=== PATIENT | female | born 2000 | race African-American/Black ===

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

== ENCOUNTER 2020-12-27 06:15 | Inpatient (IN) ==
[2020-12-27] MEDS ORDERED: AMPICILLIN VIAL 2 GRAM ONE (06:39)
[2020-12-27] MEDS ORDERED: PITOCIN ONE (06:40)
[2020-12-27] MEDS ORDERED: D5 1/2 NS 1000 ML 1,000 ML IV ONE ×2 (06:40→19:01)
[2020-12-27] MEDS ORDERED: NS 100 ML IV 100 ML IV ONE ×4 (06:40→19:01)
[2020-12-27] MEDS ORDERED: BETADINE SOLN ONE (06:40)
[2020-12-27] MEDS ORDERED: D5 1/2 NS 1L W PITOCIN 20 UNITS/L 20 UNITS/1,000 ML BAG IV ONE (06:41)
[2020-12-27] MEDS ORDERED: D5LR 1L W PITOCIN 10 UNITS/L 10 UNITS/1,000 ML BAG IV ONE (06:41)
[2020-12-27] MEDS ORDERED: PHENERGAN INJ 25 MG IM PRN ×2 (06:43→23:55)
[2020-12-27] MEDS ORDERED: REGLAN INJ 10 MG VIAL IVP PRN (06:43)
[2020-12-27] MEDS ORDERED: D5LR 1L W PITOCIN 10 UNITS/L 10 UNITS/1,000 ML BAG IV PRN ×2 (06:43→06:47)
[2020-12-27] MEDS ORDERED: PITOCIN IVP ONE (06:46)
[2020-12-27] MEDS: D5 1/2 NS 1000 ML 1,000 ML IV SCH ×3 (06:50→23:58)
[2020-12-27] MEDS ORDERED: AMPICILLIN VIAL 2 GRAM 2 G in NS 100 ML IV + SPIKE MINIBAG* 100 ML IV SCH (07:00)
[2020-12-27 07:18] LABS: BILIRUBIN,URINE NEGATIVE (NEGATIVE); BLOOD/HEMOGLOBIN,URINE NEGATIVE (NEGATIVE); GLUCOSE, URINE NEGATIVE (NEGATIVE); KETONES,URINE NEGATIVE (NEGATIVE); LEUKOCYTE ESTERASE ,URINE 2+ (NEGATIVE); NITRITES,URINE NEGATIVE (NEGATIVE); PH,URINE 6.5 (5.0 - 8.0); PROTEIN,URINE NEGATIVE (NEGATIVE); UROBILINOGEN,URINE NORMAL (NORMAL)
[2020-12-27 07:27] LABS: APPEARANCE,URINE SLIGHTLY HAZY (CLEAR); BACTERIA,URINE TRACE /HPF (NEGATIVE); COLOR,URINE YELLOW (YELLOW); RBC,URINE NONE SEEN /HPF (0-3); SQUAMOUS EPITHELIAL CELL,UR MODERATE /HPF (NEGATIVE)
[2020-12-27 07:29] LABS: BASOPHILS % (AUTO) 0.5 % (0.2-1.0); EOSINOPHILS # (AUTO) 0.1 x10^3/uL (0.0-0.2); EOSINOPHILS % (AUTO) 0.9 % (0.9-2.9); HEMOGLOBIN 11.3 g/dL (12.0-16.0); LYMPHOCYTES # (AUTO) 2.5 X10^3/uL (1.3-2.9); LYMPHOCYTES % (AUTO) 27.9 % (21.0-51.0); MEAN CORPUSCULAR HEMOGLOBIN 28.5 pg (27.0-34.0); MEAN CORPUSCULAR HGB CONC 33.2 g/dL (33.0-35.0); MEAN CORPUSCULAR VOLUME 85.9 fL (80.0-100.0); MEAN PLATELET VOLUME 9.3 fL (7.4-11.0); MONOCYTES # (AUTO) 0.8 x10^3/uL (0.3-0.8); MONOCYTES % (AUTO) 8.4 % (0.0-13.0); NEUTROPHILS # (AUTO) 5.6 x10^3/uL (2.2-4.8); NEUTROPHILS % (AUTO) 62.3 % (42.0-75.0); PLATELET COUNT 376 X10^3/uL (150.0-450.0); RED BLOOD COUNT 3.96 X10^6/uL (3.5-5.4); RED CELL DISTRIBUTION WIDTH 13.3 % (11.6-16.5); WHITE BLOOD COUNT 9.1 X10^3/uL (3.6-10.0)
[2020-12-27 07:33] LABS: BLOOD UREA NITROGEN 11 mg/dL (7-18); CALCIUM 8.7 mg/dL (8.5-10.1); CARBON DIOXIDE 18.9 mmol/L (21-32); CHLORIDE 106 mmol/L (98-107); CREATININE 0.65 mg/dL (0.55-1.02); SODIUM 139 mmol/L (136-145); eGFR NON BLACK RACES > 60 (>60)
[2020-12-27] MEDS: STADOL INJ IVP PRN ×3 (09:08→15:00)
[2020-12-27] MEDS ORDERED: STADOL INJ ONE ×3 (09:08→14:55)
[2020-12-27] MEDS: PITOCIN IVP ONE ×2 (09:41→22:57)
[2020-12-27] MEDS ORDERED: LOPRESSOR TAB 50 MG ONE (10:11)
[2020-12-27] MEDS: LOPRESSOR TAB 50 MG PO SCH (10:20)
[2020-12-27] MEDS: AMPICILLIN VIAL 1 GRAM 1 G in NS 100 ML IV + SPIKE MINIBAG* 100 ML IV SCH ×4 (11:00→23:57)
[2020-12-27] MEDS ORDERED: AMPICILLIN VIAL 1 GRAM ONE ×3 (11:03→19:01)
[2020-12-27] MEDS ORDERED: LR 1000 ML IV 1,000 ML IV ONE ×2 (11:03→16:22)
[2020-12-27] MEDS ORDERED: FENTANYL INJ 100 mcg ONE (11:54)
[2020-12-27] MEDS ORDERED: NAROPIN EPIDURAL 0.2% 100 ML ONE (11:55)
[2020-12-27] MEDS ORDERED: XYLOCAINE 1 % (PLAIN) ONE (23:00)
[2020-12-27] MEDS: D5 1/2 NS 1000 ML 1,000 ML with PITOCIN 20 UNITS IV SCH ×2 (23:45)
[2020-12-27] MEDS ORDERED: MOTRIN TAB 800 MG PO PRN (23:55)
[2020-12-28] MEDS ORDERED: AMBIEN PO PRN (00:06)
[2020-12-28] MEDS ORDERED: MOTRIN TAB 800 MG PO PRN (00:06)
[2020-12-28] MEDS ORDERED: MILK OF MAGNESIA PO PRN (00:06)
[2020-12-28] MEDS ORDERED: DERMOPLAST PAIN RELIEF SPRAY TOP PRN (00:06)
[2020-12-28] MEDS: LOPRESSOR TAB 50 MG PO SCH ×4 (01:00→21:42)
[2020-12-28 06:03] LABS: HEMATOCRIT 29.4 % (36.0-47.0); HEMOGLOBIN 9.7 g/dL (12.0-16.0)
[2020-12-28] MEDS: PRENATAL PLUS PO SCH (08:44)
[2020-12-28] MEDS: PERCOCET TAB 5/325 MG PO PRN ×2 (08:45→16:10)
[2020-12-28] MEDS ORDERED: NS 100 ML IV 100 ML with VENOFER 400 MG IV NR ×2 (09:00)
[2020-12-28] MEDS: D5 1/2 NS 1000 ML 1,000 ML with PITOCIN 20 UNITS IV SCH ×2 (18:05)
[2020-12-29] MEDS: PERCOCET TAB 5/325 MG PO PRN ×2 (03:14→08:54)
[2020-12-29] MEDS: D5 1/2 NS 1000 ML 1,000 ML with PITOCIN 20 UNITS IV SCH ×2 (03:17)
[2020-12-29] MEDS: LOPRESSOR TAB 50 MG PO SCH (08:55)
[2020-12-29] MEDS: PRENATAL PLUS PO SCH (08:55)
[2020-12-29 11:40] VITALS: BP 137/81
== END 2020-12-29 12:20 | disposition home or self-care (01) | DRG 768 ==
LOC: LD 06:15 → MED/SURG 12-28 00:07
PROVIDERS: ADMIT Obstetrics & Gynecology Obstetrics; ATTEND Obstetrics & Gynecology Obstetrics
DX: Z37.0 Single live birth; Z3A.39 39 weeks gestation of pregnancy; O71.89 Other specified obstetric trauma; O13.3 Gestational [pregnancy-induced] hypertension without significant proteinuria, third trimester; B95.1 Streptococcus, group B, as the cause of diseases classified elsewhere; O70.0 First degree perineal laceration during delivery; O99.824 Streptococcus B carrier state complicating childbirth